=== PATIENT | female | born 1960 | race Caucasian/White ===

== ENCOUNTER 2017-09-22 07:51 | Emergency (ER) | payer SELFPAY ==
[~2017-09-22] VITALS: Ht 157.5 cm; Wt 59.5 kg
[2017-09-22 07:53] VITALS: TEMP 36.7; Ht 157.5 cm; Wt 59.5 kg
[2017-09-22] MEDS ORDERED: ACETAMINOPHEN 500 MG TAB PO STA (08:22)
[2017-09-22] MEDS ORDERED: LEVO50TA PO (08:35)
[2017-09-22] MEDS ORDERED: CITA40TA12 PO (08:35)
--- NOTE | 2017-09-22 08:53 | DIAGNOSTIC IMAGING REPORT ---
CT HEAD WITHOUT CONTRAST (CT) CLINICAL HISTORY: Head pain status post trauma COMPARISON STUDY: No previous studies for comparison. TECHNIQUE: Axial CT of the brain is performed from the vertex to the skull base. IV contrast was not administered for this examination. A dose lowering technique was utilized adhering to the principles of ALARA. CT DOSE: 832.84 mGy.cm FINDINGS: No intra or extra-axial mass lesions are visualized. There is no CT evidence of acute cortical infarction. There is no evidence of midline shift. There is no acute hemorrhage. No calvarial fractures are visualized. There are minimal white matter hypodensities likely on a small vessel basis. There is no evidence of pathologic ventricular dilatation. There is a left maxillary sinus air-fluid level. There is left periorbital edema and emphysema. There is a suspected left orbital floor fracture. There is a left-sided nasal fracture. Also evident is scalp edema at the posterior parietal vertex. IMPRESSION: 1. Suspected left orbital floor fracture with left periorbital edema and emphysema. There is a left maxillary sinus air-fluid level. 2. Left nasal fracture 3. No evidence of acute intracranial injury. Electronically signed by: Florentin Muhammad M.D. 09/22/2017 8:52 AM Dictated Date/Time: 09/22/2017 8:49 AM
--- NOTE | 2017-09-22 09:00 | DIAGNOSTIC IMAGING REPORT ---
FACIAL BONES-MXILLOFAC WITHOUT CLINICAL HISTORY: 56 years-old Female presenting with EVAL LEFT FACIAL TRAUMA, fall, left-sided head and facial trauma, loss of consciousness. TECHNIQUE: Multidetector CT of the face was performed without the use of intravenous contrast. IV contrast: None. A dose lowering technique was used consistent with the principles of ALARA (as low as reasonably achievable). COMPARISON: None. CT DOSE (mGy.cm): The estimated cumulative dose is 832.[address] head. FINDINGS: Water Mechanic topogram: Unremarkable. Nondisplaced fracture of the inferior wall of the left orbit with preseptal and postseptal, extraconal gas in the left orbit. No evidence of significant herniation of intraorbital fat. No abnormal configuration of the left inferior rectus muscle to suggest entrapment. Partial opacification of the left maxillary sinus. The medial wall of the left orbit does not demonstrate a convincing fracture. Right orbit intact. Bony nasal septum with mild leftward deviation, which appears chronic. Louise bullosa of the right middle turbinate. Minimal polypoid mucosal thickening in the right maxillary sinus. Periapical lucencies noted in the right maxillary first premolar as well as the first and second molar. Limited intracranial evaluation within normal limits. Soft tissue swelling over the left frontal region consistent with contusion. Upper cervical spine normal. Mandible intact. Degenerative changes of the right temporal mandibular joint. IMPRESSION: 1. Nondisplaced left orbital floor fracture with preseptal and post septal, extraconal gas in the left orbit. No evidence of herniation of intraorbital contents or muscular entrapment. 2. Additional findings as above. Electronically signed by: Wilfredo Werner M.D. 09/22/2017 8:59 AM Dictated Date/Time: 09/22/2017 8:53 AM
[2017-09-22] MEDS ORDERED: AMOXICILLIN/CLAVULANATE TAB 875 MG TAB PO ONE (10:00)
[2017-09-22] MEDS ORDERED: AMOX875T PO (10:35)
--- NOTE | 2017-09-22 10:37 | EMERGENCY ROOM VISIT NOTE ---
ED Visit Note First contact with patient: 07:57 CHIEF COMPLAINT: Facial injury yesterday HISTORY OF PRESENT ILLNESS: Patient is a 56-year-old white female who presents emergency department for evaluation of facial injuries after a fall yesterday. Patient states that she tripped in her home and fell, she struck her hip on her table, then hit her nose on the sink. She states that she lost consciousness for a few seconds, when she came to, her was holding a towel over her nose. The The epistaxis under control after about a minute. She states that she did not want to come to the emergency department to be evaluated yesterday. She notes that she had some difficulty sleeping last evening, she reports a mild generalized headache, and some associated nausea, without vomiting. She notes pain in the left side of her nose into her left cheek. She has difficulty breathing through the left nostril. She did blow her nose this morning, and blew out a large clot, but has not had any further epistaxis. She did not take any medication for discomfort today. She rates her pain a 9/10. She denies any jaw pain, but does note that her right lower rear molar is a little bit loose. She has some mild bilateral neck pain. She denies any double or blurry vision or vision changes. No numbness, tingling or weakness into the extremities. No difficulty with balance, speech or coordination. REVIEW OF SYSTEMS: Review of systems as per HPI. All other systems reviewed were negative. 10 systems reviewed. PMH: Electronic medical records are reviewed and summarized as above/below. See Problem List. SOCIAL HISTORY: Patient lives at home with her . Employed. Positive tobacco use. PHYSICAL EXAM: Vital Signs: Reviewed Nurse's notes. CONSTITUTIONAL: Patient is a pleasant, well-appearing 56-year-old white female who is awake and alert and in no acute distress. GCS 15 HEENT: Normocephalic, atraumatic. Pupils equal, round, reactive to light and accommodation. EOMs intact without nystagmus. Sclera are anicteric. Tympanic membranes intact, with normal landmarks. External canals are clear. No hemotympanum or Thompson sign. Oral and nasopharynx are clear. No septal hematoma. No CSF rhinorrhea. Mucous membranes are moist. FACE: The patient has soft tissue swelling and ecchymosis in the left supra and inferior orbital area, extending slightly into the left upper cheek. Skin is intact. She has no pain over the right orbital bone, nasal bridge is slightly tender, without difficulty and displaced deformity. She did not have any pain in the zygomatic, mandible or the maxilla. Jaw opens and closes fully. NECK: Supple, nontender, no lymphadenopathy. Full range of motion. HEART: Regular rate and rhythm, with normal S1 and S2, no murmur or gallop or rub is heard. LUNGS: Breath sounds equal and clear to auscultation without wheezes, rales, or rhonchi heard. SKIN: No lesions or rash, normal skin turgor. EXTREMITIES: No cyanosis, edema, joint tenderness or swelling. No deformity. NEUROLOGICAL: Alert and oriented x4. Cranial nerves 2 through 12, sensation and strength grossly intact. Gait is normal. EMERGENCY DEPARTMENT COURSE: Patient was medicated with Tylenol for discomfort. Head and maxillofacial CT scans were obtained. Findings are consistent with left nasal bone fractures, and a left orbital floor fracture with periorbital edema and emphysema. She has an air-fluid level in the left maxillary sinus. The patient unfortunately attempted to blow her nose a second time while in the emergency department, and caused significant increase in swelling in the left side of her face. When she was reassessed after CT scan, she could not open her left eye at all. CT findings were reviewed with her, and it was explained that she had air in the soft tissue of her face from the orbital floor fracture. She does not have any evidence for globe involvement, exam is not consistent with entrapment. She will be placed on Augmentin to minimize the risk of infection, and was given contact information for both maxillofacial and ENT surgery for further care and management of her facial fractures. The patient declined any medication for discomfort. Ongoing conservative care measures were discussed with her. She was discharged to home. She rated her pain a 5/10 at discharge. Medication reconciliation: I attest that I have personally reviewed the patient' s current medication list. Blood pressure screening : Patient was found to have normal blood pressure on screening and does not require follow-up. Differential diagnoses entertained included skull fracture, facial bone fracture , concussion, acute intracranial bleed, C-spine injury, among others. CT HEAD WITHOUT CONTRAST (CT) CLINICAL HISTORY: Head pain status post trauma COMPARISON STUDY: No previous studies for comparison. TECHNIQUE: Axial CT of the brain is performed from the vertex to the skull base. IV contrast was not administered for this examination. A dose lowering technique was utilized adhering to the principles of ALARA. CT DOSE: 832.84 mGy.cm FINDINGS: No intra or extra-axial mass lesions are visualized. There is no CT evidence of acute cortical infarction. There is no evidence of midline shift. There is no acute hemorrhage. No calvarial fractures are visualized. There are minimal white matter hypodensities likely on a small vessel basis. There is no evidence of pathologic ventricular dilatation. There is a left maxillary sinus air-fluid level. There is left periorbital edema and emphysema. There is a suspected left orbital floor fracture. There is a left-sided nasal fracture. Also evident is scalp edema at the posterior parietal vertex. IMPRESSION: 1. Suspected left orbital floor fracture with left periorbital edema and emphysema. There is a left maxillary sinus air-fluid level. 2. Left nasal fracture 3. No evidence of acute intracranial injury. FACIAL BONES-MXILLOFAC WITHOUT CLINICAL HISTORY: 56 years-old Female presenting with EVAL LEFT FACIAL TRAUMA, fall, left-sided head and facial trauma, loss of consciousness. TECHNIQUE: Multidetector CT of the face was performed without the use of intravenous contrast. IV contrast: None. A dose lowering technique was used consistent with the principles of ALARA (as low as reasonably achievable). COMPARISON: None. CT DOSE (mGy.cm): The estimated cumulative dose is 832.[address] head. FINDINGS: Nanofabrication Specialist topogram: Unremarkable. Nondisplaced fracture of the inferior wall of the left orbit with preseptal and postseptal, extraconal gas in the left orbit. No evidence of significant herniation of intraorbital fat. No abnormal configuration of the left inferior rectus muscle to suggest entrapment. Partial opacification of the left maxillary sinus. The medial wall of the left orbit does not demonstrate a convincing fracture. Right orbit intact. Bony nasal septum with mild leftward deviation, which appears chronic. Louise bullosa of the right middle turbinate. Minimal polypoid mucosal thickening in the right maxillary sinus. Periapical lucencies noted in the right maxillary first premolar as well as the first and second molar. Limited intracranial evaluation within normal limits. Soft tissue swelling over the left frontal region consistent with contusion. Upper cervical spine normal. Mandible intact. Degenerative changes of the right temporal mandibular joint. IMPRESSION: 1. Nondisplaced left orbital floor fracture with preseptal and post septal, extraconal gas in the left orbit. No evidence of herniation of intraorbital contents or muscular entrapment. 2. Additional findings as above. Problem List Medical Problems: (1) Anxiety and depression Status: Chronic (2) Hypothyroidism Status: Chronic Surgical Problems: (1) H/O section Status: Resolved Current/Historical Medications Scheduled Amoxicillin & Pot Clavulanate (Augmentin 875-125 mg), 1 TAB PO BID Citalopram Hydrobromide (Celexa), 40 MG PO DAILY Levothyroxine Sodium (Synthroid), 50 MCG PO DAILY Allergies Coded Allergies: No Known Allergies (Unverified , 09/22/17) Vital Signs Date Time Temp Pulse Resp B/P (MAP) Pulse Ox O2 Delivery O2 Flow Rate FiO2 09/22/17 10:44 78 18 138/79 97 Room Air 09/22/17 09:50 66 16 145/60 98 Room Air 09/22/17 07:53 36.7 84 16 122/77 99 Room Air Medications Administered Medications (Trade) Dose Ordered Sig/Andre Route Start Time Stop Time Status Last Admin Dose Admin Acetaminophen (Tylenol Tab) 1,000 mg NOW STAT PO 09/22/17 08:22 09/22/17 08:30 DC 09/22/17 08:35 1,000 MG Amoxicillin/ Clavulanate Potassium (Augmentin Tab) 875 mg ONE ONCE PO 09/22/17 10:00 09/22/17 10:01 DC 09/22/17 09:50 875 MG Departure Information Impression Primary Impression: Left orbit fracture Additional Impression: Nasal fracture Prescriptions Amoxicillin & Pot Clavulanate (Augmentin 875-125 mg) 1 Tab Tab 1 TAB PO BID, #14 TAB Prov: Yanira Delgado PA 09/22/17 Referrals Karen Gómez (PCP) Gavin Sanchez M.D. ENT Surgery Sohan Hoover D.D.[facility] Maxillof[facility] Patient Instructions [facility] Additional Instructions Augmentin 875 mg: Take one pill 2 times daily for 7 days to prevent infection. All antibiotics can cause diarrhea. If this occurs and you feel worse or it does not resolve in 1-2 days follow up with your doctor or return to the Emergency Department as this could be signs of serious underlying problems. Any medication can cause an allergic reaction, stop the pills immediately and return to the ER for rash, hives, breathing difficulties, or swelling. Ibuprofen(Motrin, Advil) may be used for fever or pain. Use 600mg every six hours as needed. Take with food. Avoid using more than 2400mg in a 24 hour period. Do not use 2400mg per day for more than three consecutive days without physician direction. Prolonged inappropriate use can lead to stomach upset or ulcers. This medication can be taken if you need to drive, work, or perform activities which may be dangerous when taking narcotic pain medication. (AND/OR) Acetaminophen(Tylenol) may be used for fever or pain. Use 1000mg every six hours as needed. Avoid using more than 3000mg in a 24 hour period. This medication can be taken if you need to drive, work, or perform activities which may be dangerous when taking narcotic pain medication. Ice compresses for 15 minutes at a time four times daily for 2-3 days. Sleep with head of the bed elevated. Do not blow your nose. Use a saline nasal spray and nasal decongestant as needed for congestion. Follow-up with maxillofacial surgery for reevaluation of your facial fracture. Follow-up with ENT surgery if you would like the nasal bone fracture reevaluated. Problem Qualifiers
[2017-09-22 10:44] VITALS: BP 138/79; PULSE 78; O2SAT 97
== END 2017-09-22 10:46 | disposition home or self-care (01) ==
LOC: C.EDB 07:54
DX: S02.82XA Fracture of other specified skull and facial bones, left side, initial encounter for closed fracture (principal); S02.2XXA Fracture of nasal bones, initial encounter for closed fracture; W01.198A Fall on same level from slipping, tripping and stumbling with subsequent striking against other object, initial encounter; E03.9 Hypothyroidism, unspecified; Z72.0 Tobacco use; Z98.891 History of uterine scar from previous surgery; Z79.899 Other long term (current) drug therapy

== ENCOUNTER → 2018-05-29 | Outpatient (CLI) | payer OTHER ==
[~2018-05-29] MED LIST: CITA40TA12 PO; GABA-1219 PO; LEVO50TA PO
--- NOTE | 2018-05-29 17:59 | DIAGNOSTIC IMAGING REPORT ---
MRI OF THE CERVICAL SPINE WITHOUT IV CONTRAST CLINICAL HISTORY: Right-sided numbness. COMPARISON STUDY: No priors. TECHNIQUE: MRI of the cervical spine is performed utilizing various T1 and T2 sequences in the axial and sagittal planes. IV contrast was not administered for this examination. FINDINGS: Cervical spine: Vertebral body height is maintained throughout the cervical spine. There is minimal anterolisthesis at C4-C5. Alignment is otherwise preserved. There is straightening of the lower cervical lordosis with reversal centered at C5. The atlantodental articulation appears maintained. The spinous processes appear intact. No destructive bony lesion is identified. Mild degenerative endplate edema is noted at C5-C6. Small anterior osteophytes are seen throughout. Intervertebral discs: There is degenerative disc desiccation throughout the cervical spine. Moderate loss of height is seen at C5-C6 and C6-C7. Spinal cord: There is focal narrowing of the cervical cord at C5-C6, likely secondary to spinal stenosis. A 5 mm focus of abnormal signal is seen within the right aspect of the cord, best seen on sagittal image #8. This likely represents myelomalacia. The remainder of the cervical cord is normal in morphology and signal intensity. Focal slitlike prominence of the central canal within the upper thoracic cord at the level of T1 is of doubtful significance. C2-C3: A tiny posterior disc osteophyte complex is seen eccentric to the left. Uncovertebral and facet arthropathy cause minimal bilateral neural foraminal stenosis. The central canal is clear. C3-C4: Mild facet arthropathy is of no consequence. The central canal is clear. C4-C5: Uncovertebral and facet arthropathy cause mild right neural foraminal stenosis. The central canal appears clear. C5-C6: A posterior disc osteophyte complex effaces the ventral cord. The minimum AP canal diameter at this level measures 6 mm. Uncovertebral and facet arthropathy causes severe bilateral neural foraminal stenosis. C6-C7: A large posterior disc osteophyte complex eccentric to the left abuts the ventral cord. Uncovertebral and facet arthropathy causes severe left and [id number] right neural foraminal stenosis. C7-T1: Unremarkable. T1-T2: Unremarkable. Soft tissues: The prevertebral and paraspinous soft tissues are normal as visualized. Brain parenchyma: Partially imaged brain parenchyma at the skull base is normal in appearance. IMPRESSION: 1. A large posterior disc osteophyte complex at C5-C6 effaces the ventral cord. There is focal thinning of the cord with associated signal abnormality identified at this level, likely representing myelomalacia secondary to chronic spinal stenosis. 2. Spondylotic change at additional levels as detailed above. See discussion for detailed [id number] analysis. 3. Degenerative disc disease with endplate edema at C5-C6. Dictated: 05/29/2018 5:21 PM Transcribed: 05/29/2018 5:58 PM [facility] Electronically signed by: Leandro Juarez M.D. 05/29/2018 6:47 PM Dictated Date/Time: 05/29/2018 5:21 PM
== END | disposition home or self-care (01) ==
LOC: C.MRI 16:01
PROVIDERS: ATTEND Orthopaedic Surgery Orthopaedic Surgery of the Spine
DX: M48.02 Spinal stenosis, cervical region (principal); M47.12 Other spondylosis with myelopathy, cervical region; M25.78 Osteophyte, vertebrae